=== PATIENT | male | born 1990 | race Caucasian/White ===

== ENCOUNTER → 2018-09-07 09:36 | Outpatient (CLI) | payer OTHER, SELFPAY ==
--- NOTE | 2018-09-07 | DI.RAD.S_ITS ---
PROCEDURE: XR ANKLE LT MIN 3V INDICATIONS: FALL, PAIN AND SWELLING TECHNIQUE: 3 views of the ankle were acquired. COMPARISON: None. FINDINGS: Bones: No fractures or dislocations. Ankle mortise is normally aligned. No suspicious bony lesions. Chronic ossicle projecting the region of the tip of the lateral malleolus although technically age indeterminate. No definite donor site identified. Tibiotalar degenerative spurring Soft tissues: No tibiotalar joint effusion. Achilles tendon appears normal. IMPRESSION: Chronic appearing ossicle seen adjacent to the tip of the lateral malleolus, possibly loose body versus chronic fracture fragment although technically age indeterminate. Otherwise, no fracture. If the patient's symptoms do not improve recommend followup radiographs in 10 days to assess for healing sclerosis/occult injury. Dictated by: Jordon Silvestre M.D. on 09/07/2018 at 11:15 Approved by: Jordon Silvestre M.D. on 09/07/2018 at 11:26
== END ==
PROVIDERS: Visit Provider Family Medicine
DX: M25.572 Pain in left ankle and joints of left foot (principal); M25.472 Effusion, left ankle
CPT/HCPCS: 73610